=== PATIENT | female | born 1990 | race Two or more races ===

== ENCOUNTER 2019-02-14 08:02 | Emergency (ER) | payer MEDICAID ==
[~2019-02-14] VITALS: Ht 165.1 cm; Wt 68.0 kg
[2019-02-14 08:20] VITALS: BP 137/90
== END 2019-02-14 09:24 | disposition home or self-care (01) ==
LOC: ER 08:10
DX: R06.4 Hyperventilation (principal); R39.15 Urgency of urination
CPT/HCPCS: 81002; 81025